=== PATIENT | female | born 1940 | race Caucasian/White ===

== ENCOUNTER 2018-03-21 12:19 | Emergency (ER) | payer MEDICARE, BC ==
--- NOTE | 2018-03-21 16:05 | EDM.PDOC ---
ED HPI GENERAL MEDICAL PROBLEM - General Stated Complaint: BLEEDING POST OP Time Seen by Provider: 03/21/18 12:35 Source of Information: Reports: Patient, Family History Limitations: Reports: No Limitations - History of Present Illness INITIAL COMMENTS - FREE TEXT/NARRATIVE: Patient is a 77 year old woman who this past week had a vulvectomy done at [facility]. She has been doing well post op but this noon, she had some dark blood on her depends when she went to the bathroom. There is no pain and no active bleeding and no fever or chills or other complaints. She has come in to have it checked out. Onset: Today Onset Date: 03/21/18 Duration: Minutes: (30 minutes ago. No more bleeding noted.) Location: Reports: Other (Vaginal/Vulvar.) Quality: Reports: Other (Blood on Depends post vulvectomy.) Severity: Mild Improves with: Reports: Rest Worsens with: Reports: Movement Context: Reports: Other (Status Post Vulvectomy at [facility] this past week.) Associated Symptoms: Reports: No Other Symptoms - Related Data Allergies Allergy/AdvReac Type Severity Reaction Status Date / Time No Known Allergies Allergy Verified 07/23/15 02:36 Home Meds: Home Meds Aspirin [Adult Low Dose Aspirin EC] 81 mg PO DAILY 03/05/14 [History] Lisinopril 5 mg PO DAILY 03/05/14 [History] atorvaSTATin Calcium [Atorvastatin Calcium] 40 mg PO DAILY 03/05/14 [History] ED ROS GENERAL - Review of Systems Review Of Systems: See Below Constitutional: Reports: No Symptoms HEENT: Reports: No Symptoms Respiratory: Reports: No Symptoms Cardiovascular: Reports: No Symptoms Endocrine: Reports: No Symptoms GI/Abdominal: Reports: No Symptoms : Reports: Discharge (Bloody discharge from Vulvectomy Site.) Musculoskeletal: Reports: No Symptoms Skin: Reports: No Symptoms Neurological: Reports: No Symptoms Psychiatric: Reports: No Symptoms Hematologic/Lymphatic: Reports: No Symptoms Immunologic: Reports: No Symptoms ED EXAM, RENAL/ - Physical Exam Exam: See Below Exam Limited By: No Limitations General Appearance: Alert, WD/WN, No Apparent Distress Eye Exam: Bilateral Eye: EOMI, Normal Fundi, Normal Inspection, PERRL Ears: Normal External Exam, Normal Canal, Hearing Grossly Normal, Normal TMs Nose: Normal Inspection, Normal Mucosa, No Blood Throat/Mouth: Normal Inspection, Normal Lips, Normal Teeth, Normal Gums, Normal Oropharynx, Normal Voice, No Airway Compromise Head: Atraumatic, Normocephalic Neck: Normal Inspection, Supple, Non-Tender, Full Range of Motion Respiratory/Chest: No Respiratory Distress, Lungs Clear, Normal Breath Sounds, No Accessory Muscle Use, Chest Non-Tender Cardiovascular: Normal Peripheral Pulses, Regular Rate, Rhythm, No Edema, No Gallop, No JVD, No Murmur, No Rub GI/Abdominal: Normal Bowel Sounds, Soft, Non-Tender, No Organomegaly, No Distention, No Abnormal Bruit, No Mass (Female) Exam: Vaginal Bleeding (She has vaginal bleeding with clots from the vulvectomy site. No active bleeding, no foul smelling discharge and no signs of wound infection. No pain on examination of the vulvar and vaginal area.) Back Exam: Normal Inspection, Full Range of Motion, NT Extremities: Normal Inspection, Normal Range of Motion, Non-Tender, Normal Capillary Refill, No Pedal Edema Neurological: Alert, Oriented, CN II-XII Intact, Normal Cognition, Normal Gait, Normal Reflexes, No Motor/Sensory Deficits Psychiatric: Normal Affect, Normal Mood Skin Exam: Warm, Dry, Intact, Normal Color, No Rash Lymphatic: No Adenopathy Course - Vital Signs Text/Narrative:: Unevenful ED course. [facility] Gynecology Oncologic Surgeon was consulted by phone and he said this was likely post op bleeding that can be observed through the weekend with follow up in [place] in 2-3 days with the Bioinformatics Specialist there as already scheduled. If bleeding increases, they will go to the ED here or in [place] to be further checked by the Bioinformatics Specialist transportation services representative. She was comfortable and had no active bleeding during her ED stay here. - Orders/Labs/Meds Labs: Laboratory Tests 03/21/18 03/21/18 Range/Units 12:50 12:50 WBC 10.5 D (4.0-11.0) K/uL RBC 4.10 (3.80-5.80) M/uL Hgb 12.1 (11.5-16.5) g/dL Hct 35.5 L (37.0-47.0) % MCV 87 (76-96) fL MCH 29.5 (27.0-32.0) pg MCHC 34.1 (31.0-35.0) g/dL RDW 14.0 (11.0-16.0) % Plt Count 279 (150-500) K/uL MPV 10.2 H (6.0-10.0) fL Neut % (Auto) 80.8 H (45.0-70.0) % Lymph % (Auto) 11.6 L (20.0-40.0) % [place] % (Auto) 6.4 (3.0-10.0) % Eos % (Auto) 0.9 L (1.0-5.0) % Baso % (Auto) 0.3 (0.0-0.5) % Neut # (Auto) 8.51 H (2.00-7.50) K/uL Lymph # (Auto) 1.22 L (1.50-4.00) K/uL [place] # (Auto) 0.67 (0.20-0.80) K/uL Eos # (Auto) 0.10 (0.04-0.40) K/uL Baso # (Auto) 0.03 (0.02-0.10) K/uL Sodium 136 (136-145) mmol/L Potassium 3.4 L (3.5-5.1) mmol/L Chloride 103 (98-107) mmol/L Carbon Dioxide 21.7 D (21.0-32.0) mmol/L Anion Gap 14.7 (5.0-15.0) mmol/L BUN 16 D (8-26) mg/dL Creatinine 0.90 (0.55-1.02) mg/dL Est Cr Clr Drug Dosing TNP Estimated GFR (MDRD) > 60 (>60) MLS/MIN BUN/Creatinine Ratio 17.8 (6-25) Glucose 141 H D (74-100) mg/dL Calcium 8.8 (8.5-10.1) mg/dL Total Bilirubin 0.5 D (0.0-1.0) mg/dL AST 25 (15-37) U/L ALT 45 (12-78) U/L Alkaline Phosphatase 110 (46-116) U/L Total Protein 7.3 (6.4-8.2) g/dL Albumin 3.2 L (3.4-5.0) g/dL Globulin 4.1 (2.2-4.2) g/dL Albumin/Globulin Ratio 0.8 (0.8-2.0) Departure - Departure Time of Disposition: 16:11 Disposition: Home, Self-Care 01 Condition: Good Clinical Impression: Vulvar cancer - Discharge Information Referrals: PCP,None [Primary Care Provider] -
== END 2018-03-21 16:07 | disposition home or self-care (01) ==
LOC: LB.ED 12:19
DX: C51.9 Malignant neoplasm of vulva, unspecified (principal); Z79.82 Long term (current) use of aspirin; Z79.899 Other long term (current) drug therapy
CPT/HCPCS: 36415; 80053; 85025; 99282; 99283

== ENCOUNTER 2018-03-22 10:18 | Emergency (ER) | payer MEDICARE, BC ==
[2018-03-22 10:46] VITALS: BP 129/54
--- NOTE | 2018-03-22 11:35 | EDM.PDOC ---
ED HPI GENERAL MEDICAL PROBLEM - General Chief Complaint: Gastrointestinal Problem Stated Complaint: Constipation Time Seen by Provider: 03/22/18 10:40 Source of Information: Reports: Patient, Family History Limitations: Reports: No Limitations - History of Present Illness INITIAL COMMENTS - FREE TEXT/NARRATIVE: Patient is a 77 year old woman status post vulvectomy last week at the [facility] in [place] for vulvar cancer. We saw her yesterday for some postoperative vulvar bleeding that had stopped. She has miniimal bleeding today vaginally but she has not had a bowel movement for a couple of days and this concerns her. No abdominal discomfort and she has not felt the urge to have a bowel movement since leaving the hospital in [place], [place]. She is wondering what she can to to have a bowel movement. No other complaints. Onset: Gradual Onset Date: 03/18/18 Onset Time: 12:00 Duration: Day(s): (5) Location: Reports: Abdomen Quality: Reports: Other (Constipated with no pain.) Severity: Mild Improves with: Reports: None Worsens with: Reports: None Context: Reports: Other (Status Post Surgery.) Associated Symptoms: Reports: No Other Symptoms - Related Data Allergies Allergy/AdvReac Type Severity Reaction Status Date / Time No Known Allergies Allergy Verified 03/22/18 10:41 Home Meds: Home Meds Aspirin [Adult Low Dose Aspirin EC] 81 mg PO DAILY 03/05/14 [History] Lisinopril 5 mg PO DAILY 03/05/14 [History] atorvaSTATin Calcium [Atorvastatin Calcium] 40 mg PO DAILY 03/05/14 [History] Gabapentin [Neurontin] 300 mg PO BID 03/22/18 [History] Memantine HCl 10 mg PO BID 03/22/18 [History] ED ROS GENERAL - Review of Systems Review Of Systems: See Below Constitutional: Reports: No Symptoms HEENT: Reports: No Symptoms Respiratory: Reports: No Symptoms Cardiovascular: Reports: No Symptoms Endocrine: Reports: No Symptoms GI/Abdominal: Reports: Constipation : Reports: Discharge (Minimal bloody discharge that is old and dark blood from vulva. No active bleeding.) Musculoskeletal: Reports: No Symptoms Skin: Reports: No Symptoms Neurological: Reports: No Symptoms Psychiatric: Reports: No Symptoms Hematologic/Lymphatic: Reports: No Symptoms Immunologic: Reports: No Symptoms ED EXAM, GI/ABD - Physical Exam Exam: See Below Exam Limited By: No Limitations General Appearance: Alert, WD/WN, No Apparent Distress Eyes: Bilateral: Normal Appearance, EOMI Ears: Normal External Exam, Normal Canal, Hearing Grossly Normal, Normal TMs Nose: Normal Inspection, Normal Mucosa, No Blood Throat/Mouth: Normal Inspection, Normal Lips, Normal Teeth, Normal Gums, Normal Oropharynx, Normal Voice, No Airway Compromise Head: Atraumatic, Normocephalic Neck: Normal Inspection, Supple, Non-Tender, Full Range of Motion Respiratory/Chest: No Respiratory Distress, Lungs Clear, Normal Breath Sounds, No Accessory Muscle Use, Chest Non-Tender Cardiovascular: Normal Peripheral Pulses, Regular Rate, Rhythm, No Edema, No Gallop, No JVD, No Murmur, No Rub GI/Abdominal Exam: Normal Bowel Sounds, Soft, Non-Tender, No Organomegaly, No Distention, No Abnormal Bruit, No Mass, Pelvis Stable (Female) Exam: Normal External Exam, Normal Speculum Exam, Normal Bimanual Exam Back Exam: Normal Inspection, Full Range of Motion, NT Extremities: Normal Inspection, Normal Range of Motion, Non-Tender, Normal Capillary Refill, No Pedal Edema Neurological: Alert, Oriented, CN II-XII Intact, Normal Cognition, Normal Gait, Normal Reflexes, No Motor/Sensory Deficits Psychiatric: Normal Affect, Normal Mood Skin Exam: Warm, Dry, Intact, Normal Color, No Rash Lymphatic: No Adenopathy Course - Vital Signs Text/Narrative:: Unremarkable ED course. She will go home and take 30 ml of Milk of Magnesia today and again tomorrow if she has no response. She will return here if any pain or problems arise and otherwise she will follow up with her Leadership Recruiter in [place] this week which was already scheduled for a post op check. Last Recorded V/S: Last Vital Signs Temp 36.2 C 03/22/18 10:42 Pulse 79 03/22/18 10:42 Resp 18 03/22/18 10:42 BP 129/54 L 03/22/18 10:42 Pulse Ox 100 03/22/18 10:42 Departure - Departure Time of Disposition: 11:41 Disposition: Home, Self-Care 01 Condition: Good Clinical Impression: Constipation Qualifiers: Constipation type: unspecified constipation type Qualified Code(s): K59.00 - Constipation, unspecified - Discharge Information Instructions: Magnesium Hydroxide oral suspension, Constipation, Adult, Easy-to -Read Forms: ED Department Discharge Additional Instructions: Take Milk of Magnesium 30mL today. May take tomorrow if you do not have a bowel movement. May want to take Colace or Docusate Sodium daily until you heal for easier bowel movements. Come back to be seen if you develop severe abdominal pain or nausea/vomiting.
== END 2018-03-22 11:02 | disposition home or self-care (01) ==
LOC: LB.ED 10:18
DX: K59.00 Constipation, unspecified (principal); Z79.82 Long term (current) use of aspirin; Z79.899 Other long term (current) drug therapy
CPT/HCPCS: 99282; 99283

== ENCOUNTER → 2019-07-30 | Outpatient (CLI) | payer MEDICARE, MEDICAID | LOC: LB.CC 12:06 → LB.CLINIC 12:06 | PROVIDERS: ATTEND Nurse Practitioner Family | DX: R31.9 Hematuria, unspecified (principal) | CPT/HCPCS: 81001 ==

== ENCOUNTER 2019-12-18 13:36 | Emergency (ER) | payer MEDICARE, MEDICAID ==
--- NOTE | 2019-12-18 13:51 | EDM.PDOC ---
ED HPI GENERAL MEDICAL PROBLEM - General Chief Complaint: General Stated Complaint: CHANGE IN LOC Time Seen by Provider: 12/18/19 13:45 Source of Information: Reports: [facility] Records, RN Notes Reviewed History Limitations: Reports: Altered Mental Status (dementia) - History of Present Illness INITIAL COMMENTS - FREE TEXT/NARRATIVE: This patient presents to the ED for evaluation following a fall. She comes from [facility] where she sustained a fall, hitting her head last evening. The fall was unwitnessed and neuro checks were done throughout the night according to their protocal. I was called to [facility] to see her at approximately 1100 this morning and did an exam at that time. Her PE was WNL and there were no focal findings. I was called back to see her at approximately 1330 because she slept through lunch and she was now quite difficult to arouse. She has also had some diarrhea in the past 24 hours but is otherwise at her baseline. There is no reported symptoms including fever, cough, sore throat, or vomiting. Onset: Today Duration: Getting Worse Location: Reports: Head - Related Data Allergies Allergy/AdvReac Type Severity Reaction Status Date / Time No Known Allergies Allergy Verified 12/18/19 13:51 Home Meds: Home Meds Aspirin [Adult Low Dose Aspirin EC] 81 mg PO DAILY 03/05/14 [History] Lisinopril 5 mg PO DAILY 03/05/14 [History] atorvaSTATin Calcium [Atorvastatin Calcium] 40 mg PO DAILY 03/05/14 [History] Gabapentin [Neurontin] 300 mg PO BID 03/22/18 [History] Memantine HCl 10 mg PO BID 03/22/18 [History] Ciprofloxacin [Ciprofloxacin HCl] 500 mg PO BID tablet 08/20/18 [Rx] traZODone 100 mg PO BEDTIME PRN tablet 08/20/18 [Rx] Past Medical History Cardiovascular History: Reports: Hypertension 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 Denies: Fever HEENT: Denies: No Symptoms Respiratory: Denies: No Symptoms Cardiovascular: Denies: No Symptoms GI/Abdominal: Reports: Diarrhea, Decreased Appetite Musculoskeletal: Reports: Other (recent fall-tripped over a blanket) Skin: Reports: No Symptoms Neurological: Reports: Confusion, Pre-Existing Deficit ED EXAM, GENERAL - Physical Exam Exam: See Below Exam Limited By: Altered Mental Status General Appearance: Alert, No Apparent Distress Eye Exam: Bilateral Eye: PERRL Ears: Normal External Exam Nose: Normal Inspection Throat/Mouth: Normal Inspection Head: Atraumatic, Normocephalic (no open lesions noted) Respiratory/Chest: No Respiratory Distress, Lungs Clear, Normal Breath Sounds, No Accessory Muscle Use, Chest Non-Tender, Other (linear bruise anterior chest) Cardiovascular: Normal Peripheral Pulses, Regular Rate, Rhythm GI/Abdominal: Normal Bowel Sounds, Soft, Non-Tender, No Distention Back Exam: Normal Inspection Extremities: Normal Inspection, Non-Tender, No Pedal Edema, Normal Capillary Refill Neurological: Normal Gait (ambulating; nursing states she is limping), Other ( baseline) Psychiatric: Normal Affect, Other (baseline) Skin Exam: Warm, Dry, Intact Course - Vital Signs Last Recorded V/S: Last Vital Signs Temp 36.8 C 12/18/19 14:26 Pulse 80 12/18/19 14:26 Resp 16 12/18/19 14:26 BP 129/82 12/18/19 14:26 Pulse Ox 100 12/18/19 14:26 - Orders/Labs/Meds Orders: Active Orders 24 hr Category Date Time Status Head wo Cont [CT] Stat Exams 12/18/19 13:43 Ordered - Re-Assessments/Exams Free Text/Narrative Re-Assessment/Exam: 12/18/19 14:38 This patient presents secondary to a fall and head injury as detailed above. Her neuro exam is intact with crisp fundi, normal ambulation, no pronator drift. The patient's c-spine was clinically cleared with no midline tenderness, full ROM without radiculopathy. The patient did have a negative head CT showing no fracture or bleed or other acute changes. I discussed with the nursing staff the importance of second impact syndrome and avoiding any activity that could cause a second head injury until symptoms have resolved or cleared by primary care provider. Advised tylenol and/or ibuprofen for pain control, and return for worsening headache, weakness in arms or legs or sensory changes in arms or legs, vomiting more than two separate times or behavioral changes such as excessive sleepiness or confusion. The patient returned to the LTC center and staff were given discharge instructions. Departure - Departure Time of Disposition: 14:40 Disposition: Home, Self-Care 01 Condition: Good Clinical Impression: Closed head injury - Discharge Information *PRESCRIPTION DRUG MONITORING PROGRAM REVIEWED*: Not Applicable Referrals: PCP,None [Primary Care Provider] - Forms: ED Department Discharge Care Plan Goals: Head CT normal and continue with normal cares. Hourly rounds but no need to continue neuro checks. VSS Sepsis Event Note - Focused Exam Vital Signs: Vital Signs Temp Pulse Resp BP Pulse Ox 12/18/19 14:26 36.8 C 80 16 129/82 100 12/18/19 13:48 36.8 C 79 16 100/70 100 Date Exam was Performed: 12/18/19 Time Exam was Performed: 14:34 - My Orders Last 24 Hours: My Active Orders 12/18/19 13:43 Head wo Cont [CT] Stat - Assessment/Plan Last 24 Hours: My Active Orders 12/18/19 13:43 Head wo Cont [CT] Stat
[2019-12-18 14:27] VITALS: BP 129/82; PULSE 80
--- NOTE | 2019-12-20 07:28 | CT ---
DATE OF SERVICE: 12/18/19 CLINICAL DATA: change in LOC UNENHANCED BRAIN CT: Multislice acquisition through the brain without IV contrast was performed. Comparison is made to a prior exam dated August 2018. There is diffuse cerebral atrophy. There are extensive periventricular lucencies bilaterally consistent with small vessel ischemic change. No masses or mass effect. No intracranial hemorrhage. No evidence of acute or subacute infarct. No osseous abnormalities. IMPRESSION: No acute intracranial abnormalities. [id number]
== END 2019-12-18 14:30 | disposition home or self-care (01) ==
LOC: LB.ED 13:36
DX: S09.90XA Unspecified injury of head, initial encounter (principal); Z79.82 Long term (current) use of aspirin; Z79.899 Other long term (current) drug therapy; W19.XXXA Unspecified fall, initial encounter
CPT/HCPCS: 70450; 99283; 99284-25

== ENCOUNTER 2020-05-02 07:19 | Emergency (ER) | payer MEDICARE, MEDICAID ==
[2020-05-02] MEDS ORDERED: Lidocaine 1% with EPINEPHrine 1:100,000 20 ML MDV INJECT ONE (07:30)
--- NOTE | 2020-05-02 08:03 | EDM.PDOC ---
ED HPI GENERAL MEDICAL PROBLEM - General Chief Complaint: Laceration Stated Complaint: FELL,LACERATION Time Seen by Provider: 05/02/20 07:30 Source of Information: Reports: [facility] Records History Limitations: Reports: Altered Mental Status, Other - History of Present Illness INITIAL COMMENTS - FREE TEXT/NARRATIVE: jail resident our facility, slipped from wheelchair and sustained a superficial laceration left eyebrow area. Pt is awake, has dementia and only cries. Onset: Today, Sudden Severity: Mild Improves with: Reports: Rest Associated Symptoms: Reports: Confusion - Related Data Allergies Allergy/AdvReac Type Severity Reaction Status Date / Time No Known Allergies Allergy Verified 12/18/19 13:51 Home Meds: Home Meds Aspirin [Adult Low Dose Aspirin EC] 81 mg PO DAILY 03/05/14 [History] Lisinopril 5 mg PO DAILY 03/05/14 [History] atorvaSTATin Calcium [Atorvastatin Calcium] 40 mg PO DAILY 03/05/14 [History] Gabapentin [Neurontin] 300 mg PO BID 03/22/18 [History] Memantine HCl 10 mg PO BID 03/22/18 [History] Ciprofloxacin [Ciprofloxacin HCl] 500 mg PO BID tablet 08/20/18 [Rx] traZODone 100 mg PO BEDTIME PRN tablet 08/20/18 [Rx] Past Medical History Cardiovascular History: Reports: Hypertension 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- family bringing in reports Social & Family History - Family History Family Medical History: Noncontributory - Caffeine Use Caffeine Use: Reports: Coffee ED ROS GENERAL - Review of Systems Review Of Systems: See Below Constitutional: Reports: ROS unobtainable HEENT: Reports: No Symptoms Respiratory: Reports: No Symptoms. Denies: Shortness of Breath, Wheezing Cardiovascular: Reports: No Symptoms GI/Abdominal: Reports: No Symptoms Musculoskeletal: Reports: No Symptoms Skin: Reports: Wound Neurological: Reports: Confusion Psychiatric: Reports: Confusion ED EXAM, HEAD INJURY - Physical Exam Exam: See Below Exam Limited By: Other (Dementia) Head: Facial Lacerations. No: Scalp Lacerations, Scalp Swelling, Scalp Abrasions, Scalp Ecchymosis, Scalp Hematoma, Scalp Tenderness, Facial Ecchymosis, Facial Swelling, Facial Tenderness, Raccoon Eyes Nose: Normal Inspection Throat/Mouth: Normal Inspection Neck: Non-Tender, Full Range of Motion, Normal Alignment, Normal Inspection Respiratory: No Respiratory Distress, Lungs Clear, Normal Breath Sounds Cardiovascular: Normal Peripheral Pulses, Regular Rate, Rhythm Back Exam: Normal Inspection Extremities: Normal Inspection, Normal Range of Motion Neurologic: Depressed Affect, Other (Chronic dementia, ) Skin: Normal Color, Warm/Dry, Other (Right eyebrow/upper eyelid superficial laceration). No: Ecchymosis ED LACERATION/WOUND & DEIDRA PROC - Laceration/Wound Repair Right Lateral Brow Lac/wound length in cm: 1.5 Appearance: Superficial, Linear, Clean Distal NVT: Neuro & Vascular Intact Anesthetic Type: Local Local Anesthesia - Lidocaine (Xylocaine): 1% Plain Local Anesthetic Volume: 2cc Skin Prep: Providone-Iodine (Betadine) Saline irrigation (cc's): 50 Exploration/Debridement/Repair: Wound Explored, In a Bloodless Field Closed with: Sutures Suture Size: 5-0 # of Sutures: 2 Suture Type: Nylon Sterile Dressing Applied: Nurse Complications: No Course - Re-Assessments/Exams Free Text/Narrative Re-Assessment/Exam: 05/02/20 08:10 Simple laceration repair to right eyebrow area Departure - Departure Time of Disposition: 08:11 Disposition: DC/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
[2020-05-02 08:58] VITALS: BP 185/87; PULSE 93
== END 2020-05-02 08:10 | disposition home or self-care (01) ==
LOC: LB.ED 07:19
DX: S01.111A Laceration without foreign body of right eyelid and periocular area, initial encounter (principal); F03.90 Unspecified dementia, unspecified severity, without behavioral disturbance, psychotic disturbance, mood disturbance, and anxiety; I10 Essential (primary) hypertension; Z79.82 Long term (current) use of aspirin; Z79.899 Other long term (current) drug therapy; W05.0XXA Fall from non-moving wheelchair, initial encounter; Y92.129 Unspecified place in nursing home as the place of occurrence of the external cause
CPT/HCPCS: 12011; 12051; 99282-25

== ENCOUNTER 2020-05-08 10:00 | Emergency (ER) | payer MEDICARE, MEDICAID ==
[2020-05-08 10:18] VITALS: BP 177/97; PULSE 96
--- NOTE | 2020-05-08 10:52 | EDM.PDOC ---
ED HPI GENERAL MEDICAL PROBLEM - General Stated Complaint: POSSIBLE SEZIURES Time Seen by Provider: 05/08/20 10:30 Source of Information: Reports: RN History Limitations: Reports: Altered Mental Status, Other (nonverbal) - History of Present Illness INITIAL COMMENTS - FREE TEXT/NARRATIVE: [facility] patient with fall on 05/04/2020. Had negative head CT at that time, bruising in various stages of healing to right side of face. Sutures in right eyebrow noted and need to be removed today. Right hand fracture sustained in fall 05/04/2020, CMS + on exam. Patient is non verbal and was placed on comfort cares 1 month ago, she does not take any medications with the exception of liquid morphine for comfort cares. Spoke with Violeta CLINE at [facility], she states patient was posturing and arching her back as was reported to her by [facility] staff, nimco RN assessed patient, she was at baseline. No previous seizure history or recent blood thinner use. Patient is unable to answer questions but does not appear to be in pain on exam. She does grimace when venipuncture performed. Does not follow commands. Moves all extremities. - Related Data Allergies Allergy/AdvReac Type Severity Reaction Status Date / Time No Known Allergies Allergy Verified 05/02/20 10:19 Home Meds: Home Meds Morphine Sulfate 5 mg IJ Q12HR PRN 05/02/20 [History] Naproxen 1 tab PO BID PRN 05/02/20 [History] polyethylene glycoL 3350 [MiraLAX] 17 gm PO DAILY 05/02/20 [History] Past Medical History HEENT History: Reports: Hard of Hearing, Impaired Vision Cardiovascular History: Reports: Hypertension RESPONDER History: Reports: Other (See Below) Other RESPONDER History: Vaginal CA growth Musculoskeletal History: Reports: Other (See Below) Other Musculoskeletal History: Non-ambulatory Neurological History: Reports: Alzheimers Disease Other Psychiatric History: Denies history but spouse states confusion has increased over the last 2 years Oncologic (Cancer) History: Reports: Cervix - Infectious Disease History Infectious Disease History: Reports: Chicken Pox - Past Surgical History Other Neurological Surgeries/Procedures: Denies hx but her spouse states the confusion started 2 years ago. 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- family bringing in reports Social & Family History - Family History Family Medical History: Noncontributory - Caffeine Use Caffeine Use: Reports: Coffee ED ROS GENERAL - Review of Systems Review Of Systems: See Below - Physical Exam Exam: See Below Exam Limited By: Altered Mental Status General Appearance: No Apparent Distress Eye Exam: Bilateral Eye: PERRL (sluggish) Nose: Normal Inspection Head Exam: Facial Lacerations (healed on right eyebrow) Neck: Full Range of Motion Respiratory/Chest: No Respiratory Distress, Lungs Clear Cardiovascular: Regular Rate, Rhythm, No JVD GI/Abdominal: Soft, Non-Tender (no obvious signs of pain with palpation) Neuro Exam (Abbreviated): Other (at baseline per [facility] RN) Extremities: Arm Pain (right hand/wrist splinted, ) Skin Exam: Warm, Dry ED Add Procedures - Additional/Other Procedure(s) Procedure(s) (Free Text): 2 sutures removed from right eyebrow, no signs of infection noted, patient tolerated well. Course - Vital Signs Last Recorded V/S: Last Vital Signs Temp 97.4 F 05/08/20 10:14 Pulse 96 05/08/20 10:14 Resp 16 05/08/20 10:14 BP 177/97 H 05/08/20 10:14 Pulse Ox 96 05/08/20 10:14 - Orders/Labs/Meds Orders: Active Orders 24 hr Category Date Time Status Head wo Cont [CT] Stat Exams 05/08/20 10:13 Taken Labs: Laboratory Tests 05/08/20 05/08/20 Range/Units 10:15 10:15 WBC 9.0 D (4.0-11.0) K/uL RBC 4.45 (3.80-5.80) M/uL Hgb 13.0 (11.5-16.5) g/dL Hct 38.2 (37.0-47.0) % MCV 86 (76-96) fL MCH 29.2 (27.0-32.0) pg MCHC 34.0 (31.0-35.0) g/dL RDW 13.6 (11.0-16.0) % Plt Count 363 D (150-500) K/uL MPV 9.6 (6.0-10.0) fL Neut % (Auto) 80.2 H (45.0-70.0) % Lymph % (Auto) 11.0 L (20.0-40.0) % [place] % (Auto) 5.5 (3.0-10.0) % Eos % (Auto) 3.0 (1.0-5.0) % Baso % (Auto) 0.3 (0.0-0.5) % Neut # (Auto) 7.19 (2.00-7.50) K/uL Lymph # (Auto) 0.99 L (1.50-4.00) K/uL [place] # (Auto) 0.49 (0.20-0.80) K/uL Eos # (Auto) 0.27 (0.04-0.40) K/uL Baso # (Auto) 0.03 (0.02-0.10) K/uL Sodium 139 (136-145) mmol/L Potassium 3.6 (3.5-5.1) mmol/L Chloride 102 (98-107) mmol/L Carbon Dioxide 25.7 (21.0-32.0) mmol/L Anion Gap 14.9 (5.0-15.0) mmol/L BUN 7 L D (8-26) mg/dL Creatinine 0.71 (0.55-1.02) mg/dL Est Cr Clr Drug Dosing 57.30 mL/min Estimated GFR (MDRD) > 60 (>60) MLS/MIN BUN/Creatinine Ratio 9.9 (6-25) Glucose 125 H (74-100) mg/dL Calcium 9.1 (8.5-10.1) mg/dL Total Bilirubin 0.6 (0.0-1.0) mg/dL AST 23 (15-37) U/L ALT 24 (12-78) U/L Alkaline Phosphatase 92 (46-116) U/L Total Protein 7.5 (6.4-8.2) g/dL Albumin 3.2 L (3.4-5.0) g/dL Globulin 4.3 H (2.2-4.2) g/dL Albumin/Globulin Ratio 0.7 L (0.8-2.0) Departure - Departure Time of Disposition: 12:00 Disposition: DC/Tfer to SNF 03 Clinical Impression: Altered mental status, unspecified Qualifiers: Altered mental status type: unspecified Qualified Code(s): R41.82 - Altered mental status, unspecified - Discharge Information *PRESCRIPTION DRUG MONITORING PROGRAM REVIEWED*: Not Applicable *COPY OF PRESCRIPTION DRUG MONITORING REPORT IN PATIENT SARAH: Not Applicable Instructions: Palliative Care, End-of-Life Care Referrals: Ronn Dobbs MD [Primary Care Provider] - Sepsis Event Note (ED) - Evaluation Sepsis Screening Result: No Definite Risk - Focused Exam Vital Signs: Vital Signs Temp Pulse Resp BP Pulse Ox 05/08/20 10:14 97.4 F 96 16 177/97 H 96 - My Orders Last 24 Hours: My Active Orders 05/08/20 10:13 Head wo Cont [CT] Stat - Assessment/Plan Last 24 Hours: My Active Orders 05/08/20 10:13 Head wo Cont [CT] Stat
--- NOTE | 2020-05-08 12:13 | CT ---
DATE OF SERVICE: 05/08/2020 CLINICAL DATA: New onset seizures Unenhanced brain CT: Multi slice acquisition through the brain without IV contrast was performed. Comparison is made to a prior exam dated 04 May 2020. There is diffuse atrophy. There are extensive periventricular lucencies bilaterally consistent with small vessel ischemic change. No changes from the prior exam. No acute intracranial abnormalities. [facility]
== END 2020-05-08 11:40 ==
LOC: LB.ED 10:00
DX: R41.82 Altered mental status, unspecified (principal); S01.111D Laceration without foreign body of right eyelid and periocular area, subsequent encounter; I10 Essential (primary) hypertension; W05.0XXA Fall from non-moving wheelchair, initial encounter; Y92.129 Unspecified place in nursing home as the place of occurrence of the external cause
CPT/HCPCS: 36415; 70450; 80053; 85025; 93005; 99285-25